=== PATIENT | female | born 1965 | race Caucasian/White ===

== ENCOUNTER 2019-11-28 08:29 | Inpatient (IN) ==
--- NOTE | 2019-11-09 10:35 | PAT Medication Instructions ---
Medication Instructions Date of Service November 09, 2019 Home Medications canagliflozin [Invokana] 300 mg PO QAM citalopram [Celexa] 40 mg PO QAM gabapentin 300 mg PO TID insulin glargine [Basaglar KwikPen U-100 Insulin] 40 unit SUBCUT BID levothyroxine [Synthroid] 200 mcg PO QAM losartan [Cozaar] 25 mg PO QAM metformin 1,000 mg PO BID naproxen 500 mg PO BID omeprazole 40 mg PO QAM ASK your surgeon for instructions naproxen 500 mg PO BID DO NOT take the morning of surgery canagliflozin [Invokana] 300 mg PO QAM losartan [Cozaar] 25 mg PO QAM metformin 1,000 mg PO BID Take morning of surgery With a small sip of water, OTHERWISE NOTHING TO EAT OR DRINK AFTER MIDNIGHT: citalopram [Celexa] 40 mg PO QAM gabapentin 300 mg PO TID levothyroxine [Synthroid] 200 mcg PO QAM omeprazole 40 mg PO QAM Take evening before surgery gabapentin 300 mg PO TID insulin glargine [Basaglar KwikPen U-100 Insulin] 40 unit SUBCUT BID metformin 1,000 mg PO BID Insulin Dependent Diabetic Patients * Test your blood sugar the morning of surgery * If Blood Sugar is GREATER THAN 150, take HALF of your regular dose of: insulin glargine [Basaglar KwikPen U-100 Insulin] take 20 units * If Blood Sugar is LESS THAN 150, DO NOT TAKE ANY: insulin glargine [Basaglar KwikPen U-100 Insulin] Other Notes If you have any questions please call us at [phone] or [phone] or [phone] or [phone]
--- NOTE | 2019-11-10 11:47 | Anesthesiology Consultation ---
Date of Service November 10, 2019 Assessment & Plan (1) Encounter for pre-operative examination: Chart Review Chart Review: Patient seen in Pre Admission Testing - Awaiting PCP office visit note (scheduled 11/20; Dr. Maxine Estrada). - Check BSG AM DOS - Hx PONV: per patient, hx significant PONV with multiple previous procedures even when scope patch had been used. Concerns answered and patient advised to discuss plan further with anesthesiologist AM DOS. - Possible difficult intubation: due to anatomy Teaching & Discussion Pre-Anesthesia Teaching/Discussion Notes: Instructed NPO after midnight before surgery,except medications with 15 cc of water. Medication instructions provided according to the PAT guidelines. History Surgery Operation Date: 11/28/19 10:25 Proposed Procedures p L4-S1 Decompression and Fusion, Spinal Cord Monitoring - Alverto Carnes DO Height/Weight Height: 4 ft 11 in Weight: 110.9 kg Allergies Allergy/AdvReac Type Severity Reaction Status Date / Time Penicillins Allergy Unknown Rash Verified 11/03/19 13:47 sulfamethoxazole Allergy Unknown Rash Verified 11/03/19 13:47 [From Bactrim] trimethoprim [From Bactrim] Allergy Unknown Rash Verified 11/03/19 13:47 diazepam [From Valium] AdvReac Unknown hyperactivi Verified 11/10/19 12:03 ty Medications Home Medications Medication Instructions Recorded Confirmed Last Taken canagliflozin [Invokana] 300 mg PO QAM 11/03/19 11/03/19 Unknown citalopram [Celexa] 40 mg PO QAM 11/03/19 11/03/19 Unknown gabapentin 300 mg PO TID 11/03/19 11/03/19 Unknown insulin glargine [Basaglar KwikPen 40 unit SUBCUT BID 11/03/19 11/03/19 Unknown U-100 Insulin] levothyroxine [Synthroid] 200 mcg PO QAM 11/03/19 11/03/19 Unknown losartan [Cozaar] 25 mg PO QAM 11/03/19 11/03/19 Unknown metformin 1,000 mg PO BID 11/03/19 11/03/19 Unknown naproxen 500 mg PO BID 11/03/19 11/03/19 Unknown omeprazole 40 mg PO QAM 11/03/19 11/03/19 Unknown Past Medical History Medical History Acid reflux controlled Anxiety CAD (coronary artery disease) single vessel obstructive CAD of a small diagonal branch per 2018 cardiac cath- medical management recommended Depression Diabetes IDDM Hiatal hernia History of back problems HTN (hypertension) Hypothyroid Morbid obesity Sleep apnea + snoring/apneic events/no definitive YOKO diagnosis but had previously been recommended to have sleep study Spinal stenosis Exercise / Class Metabolic Activity III < 4 Walking/Shop/Light housework Past Family History Family History Father Family history of diabetes mellitus Family history of leukemia Mother Family history of diabetes mellitus Brother Family history of diabetes mellitus Past Surgical History Surgical History History of arthroscopy of left knee History of cardiac cath 2018: no stents History of carpal tunnel surgery of left wrist History of section History of colonoscopy History of endoscopy History of hysterectomy Past Anesthesia History No Family Hx of Anesthesia Complications and Other ("slow to wake"/no known hx reintubation) History of PONV History of PONV (+ PONV even with scope patch) and Hx of Motion Sickness Social History Smoking Status: Never smoker Do You Dip or Chew Tobacco: No Hx Alcohol Use: No Hx Substance Use: No substance use type: does not use Review of Systems URI symptoms resolved- mild residual cough. Patient denies chest pain, shortness of breath, wheezing, palpitations. Physical Exam Vital Signs VITALS BP 145/82 P 64 TEMP 98.3 SP02 99%RA RESP 18 PHYSICAL Full neck and c-spine range of motion. Full TMJ range of motion. TMD 3 finger breaths Mallampati Score 1/2- by visualization of uvula but unable to see oropharynx due to large tonsils Dentition: missing molars, + crown (unknown location) Lungs: clear throughout to auscultation Cardiac: regular rate and rhythm, distant heart sounds Spine: normal Carotid arteries: negative bruit Extremities: no edema Testing Laboratory Results 11/10/19 12:03 11/10/19 12:03 PT 10.4 Seconds (9.0-12.0) 11/10/19 12:03 INR 1.0 (0.9-1.1) 11/10/19 12:03 APTT 26.3 Seconds (21.0-31.0) 11/10/19 12:03 Hemoglobin A1c 7.2 % (4.5-5.6) H 11/10/19 12:03 Urine Color Yellow 11/10/19 12:03 Urine Appearance Clear (Clear) 11/10/19 12:03 Urine pH 5.0 (4.5-7.5) 11/10/19 12:03 Ur Specific [place] 1.030 (1.000-1.030) 11/10/19 12:03 Urine Protein Negative (Negative) 11/10/19 12:03 Urine Glucose (UA) 3+ (Negative) H 11/10/19 12:03 Urine Ketones Trace (Negative) H 11/10/19 12:03 Urine Nitrite Negative (Negative) 11/10/19 12:03 Ur Leukocyte Esterase Negative (Negative) 11/10/19 12:03 Blood Type A Positive 11/10/19 12: Antibody Screen NEGATIVE 11/10/19 12:03 Electrocardiogram Date: 09/27/19 Findings: + NSR @ (71) Chest X-Ray Date: 11/10/19 Cardiomediastinal and hilar silhouettes are within normal limits. Calcified plaque of the thoracic aorta arch. No pneumothorax, pleural effusion, airspace consolidation or overt pulmonary edema. Minimal linear left lung base atelec tasis/scarring. Degenerative changes of the shoulders and spine. IMPRESSION: No acute process. Stress Test Date: 12/04/17 Type: exercise Stress EKG negative for myocardial ischemia at 92% MPHR. Low level of exercise achieved. CP/PVC's reproduced with exercise. 4.6 METS. Small in size, mild intensity, partially reversible MPI defect involving the distal and mid inferolateral myocardium. Suggests mild inferolateral myocardial infarct and keila-infarct ischemia. Subsequent cardiac cath done 12/18/17* Cardiac Catheterization Date: 12/18/17 Single vessel obstructive CAD of the small diagonal branch. LVEF 60%. Medical management recommended.
[2019-11-10 12:31] LABS: Basophils # (auto) 0.03 K/uL (0-0.2); Basophils % (auto) 0.4 %; Eosinophils # (auto) 0.11 K/uL (0-0.5); Eosinophils % (auto) 1.5 %; Hematocrit (blood only) 44.5 % (37-47); Hemoglobin 14.5 g/dL (12.0-16.0); Immature Granulocytes # (auto) 0.01 K/uL (0.00-0.02); Immature Granulocytes % (auto) 0.1 %; Lymphocytes # (auto) 2.63 K/uL (1.2-3.4); Lymphocytes % (auto) 35.1 %; Mean Corpuscular Hemoglobin 27.5 pg (25-34); Mean Corpuscular Hgb Conc 32.6 g/dL (32-36); Mean Corpuscular Volume 84.4 fL (80-100); Mean Platelet Volume 10.2 fL (7.4-10.4); Monocytes # (auto) 0.66 K/uL (0.11-0.59); Monocytes % (auto) 8.8 %; Neutrophils # (auto) 4.06 K/uL (1.4-6.5); Neutrophils % (auto) 54.1 %; Platelet Count 318 K/uL (130-400); RDW Coefficient of Variation 14.2 % (11.5-14.5); RDW Standard Deviation 43.4 fL (36.4-46.3); Red Blood Count 5.27 M/uL (4.2-5.4)
[2019-11-10 12:42] LABS: Partial Thromboplastin Ratio 0.9; Partial Thromboplastin Time 26.3 Seconds (21.0-31.0); Prothrombin Time 10.4 Seconds (9.0-12.0)
[2019-11-10 12:46] LABS: BUN Creatinine Ratio 13.3 (10-20); Calcium 9.4 mg/dl (8.5-10.1); Est GFR (African American) 93.3; Est GFR (Non-African American) 80.5; Potassium 4.1 mmol/L (3.5-5.1)
[2019-11-10 12:48] LABS: Appearance Urine Clear (Clear); Bilirubin Urine Negative (Negative); Blood Urine Negative (Negative); Color Urine Yellow; Glucose Urine UA 3+ (Negative); Ketones Urine Trace (Negative); Leukocyte Esterase Urine Negative (Negative); Nitrite Urine Negative (Negative); Protein Urine Negative (Negative); Urobilinogen Urine Negative (Negative)
--- NOTE | 2019-11-10 12:49 | XRay Report ---
XR chest Pre-admission PA/Lat HISTORY: 54 years-old Female pat preoperative exam. No acute chest complaints COMPARISON: None TECHNIQUE: PA and lateral views of the chest FINDINGS: Cardiomediastinal and hilar silhouettes are within normal limits. Calcified plaque of the thoracic ao rta arch. No pneumothorax, pleural effusion, airspace consolidation or overt pulmonary edema. Minimal linear left lung base atelectasis/scarring. Degenerative changes of the shoulders and spine. IMPRESSION: No acute process. ACT 112: Negative or not required by law. The above report was generated using voice recognition software. It may contain grammatical, syntax o r spelling errors. Electronically signed by: Andrews Funez M.D. 11/10/2019 12:47 PM
[2019-11-10 12:50] LABS: Estimated Average Glucose 160 mg/dl; Hemoglobin A1C 7.2 % (4.5-5.6)
[~2019-11-28 08:29] MED LIST: CEFAZOLIN 2000MG 2,000 MG/15 ML SYR IV SCH; CLINDAMYCIN 600 MG/54 ML BAG IV SCH; GABAPENTIN 900 MG DOSE PO SCH; HYDROmorphone INJ 2 MG/ML SYR/VIAL ONE; LR 15ML/HR IV SCH; MIDAZOLAM HCL 1 MG/ML 2ML VIAL ONE; fentaNYL citrate 100 MCG/2 ML VIAL ONE
[2019-11-28] MEDS ORDERED: SCOPOLAMINE 1.5 MG TDSY TD ONE (09:23)
[2019-11-28] MEDS ORDERED: ONDANSETRON INJ 2 MG/ML 2 ML VIAL IV PRN ×2 (09:24→14:07)
[2019-11-28] MEDS ORDERED: ATROPINE SULFATE 0.1 MG/ML 10ML SYR IV PRN (09:24)
[2019-11-28] MEDS ORDERED: METOCLOPRAMIDE HCL INJ 5 MG/ML 2 ML VIAL IV PRN ×2 (09:24→14:07)
[2019-11-28] MEDS ORDERED: HYDROmorphone INJ 0.5 MG/0.5 ML SYR IV PRN ×2 (09:24→14:07)
[2019-11-28] MEDS ORDERED: ePHEDrine sulfate 50 MG/ML AMP IV PRN (09:24)
[2019-11-28] MEDS ORDERED: fentaNYL citrate 100 MCG/2 ML VIAL IV PRN (09:24)
--- NOTE | 2019-11-28 09:28 | History & Physical Bridge Note ---
Date of Service November 28, 2019 History & Physical Bridge Note I have examined the patient, reviewed the History & Physical and in the interval since the performance of the History & Physical I have noted the following changes of clinical significance: no changes noted
--- NOTE | 2019-11-28 09:29 | History & Physical Report ---
Date of Service November 28, 2019 Assessment & Plan (1) Neurogenic claudication due to lumbar spinal stenosis: L4-S1 decompression fusion Present on Admission?: Yes History of Present Illness Chief Complaint: Back and bilateral leg pain Primary Care Provider: Maxine Estrada MD This is a 54-year-old female that presents with marked decline in status with worsening back bilateral leg pain and inability to ambulate. Subsequently she is here for urgent surgery. Allergies Allergy/AdvReac Type Severity Reaction Status Date / Time Penicillins Allergy Unknown Rash Verified 11/28/19 09:04 sulfamethoxazole Allergy Unknown Rash Verified 11/28/19 09:04 [From Bactrim] trimethoprim [From Bactrim] Allergy Unknown Rash Verified 11/28/19 09:04 diazepam [From Valium] AdvReac Unknown hyperactivi Verified 11/28/19 09:04 ty Home Medications Home Medications Medication Instructions Recorded Confirmed Type canagliflozin [Invokana] 300 mg PO QAM 11/03/19 11/28/19 History citalopram [Celexa] 40 mg PO QAM 11/03/19 11/28/19 History gabapentin 300 mg PO TID 11/03/19 11/28/19 History insulin glargine [Basaglar KwikPen 40 unit SUBCUT BID 11/03/19 11/28/19 History U-100 Insulin] levothyroxine [Synthroid] 200 mcg PO QAM 11/03/19 11/28/19 History losartan [Cozaar] 25 mg PO QAM 11/03/19 11/28/19 History metformin 1,000 mg PO BID 11/03/19 11/28/19 History naproxen 500 mg PO BID 11/03/19 11/28/19 History omeprazole 40 mg PO QAM 11/03/19 11/28/19 History Past Med/Surg History Medical History Acid reflux controlled Anxiety CAD (coronary artery disease) single vessel obstructive CAD of a small diagonal branch per 2018 cardiac cath- medical management recommended Depression Diabetes IDDM Hiatal hernia History of back problems HTN (hypertension) Hypothyroid Morbid obesity Sleep apnea + snoring/apneic events/no definitive YOKO diagnosis but had previously been recommended to have sleep study Spinal stenosis Surgical History History of arthroscopy of left knee History of cardiac cath 2018: no stents History of carpal tunnel surgery of left wrist History of section History of colonoscopy History of endoscopy History of hysterectomy Family History Father Family history of diabetes mellitus Family history of leukemia Mother Family history of diabetes mellitus Brother Family history of diabetes mellitus Social History Preferred Language: French Communication Ability: Effective Labor Expediter Required: No Beliefs That Will Affect Care: None Current Living Situation: Family and Significant Other Current Living Situation Comment: MOM BOYFRIEND AND BOYFRIEND'S DAUGHTER Other Information That Helps Us Care for You: No Feels Safe at Home: Yes Smoking Status: Never smoker Do You Dip or Chew Tobacco: No ; Second Hand Exposure: Yes ; Hx Alcohol Use: No Hx Substance Use: No Physical Exam Physical Exam: Patient is alert and oriented neurologically intact Results & Data Vital Signs (Past 12 Hours) Vital Signs Temp Pulse Resp BP Pulse Ox 11/28/19 09:01 36.9 C 93 H 20 161/94 H 94
[2019-11-28] MEDS ORDERED: BACITRACIN INJ 50,000 UNIT VIAL ONE (09:40)
[2019-11-28] MEDS ORDERED: BUPIVACAINE/EPINEPHRINE 0.5% MPF 1:200,000 10 ML VIAL ONE (09:40)
[2019-11-28] MEDS ORDERED: NEOSTIGMINE METHYLSULFATE 5 MG/5 ML SYR ONE (10:35)
[2019-11-28] MEDS ORDERED: PHENYLEPHRINE 100MCG/ML 5ML SYR ONE (10:35)
[2019-11-28] MEDS ORDERED: METOCLOPRAMIDE HCL INJ 5 MG/ML 2 ML VIAL ONE (10:35)
[2019-11-28] MEDS ORDERED: DEXAMETHASONE SOD INJ 4 MG/ML VIAL ONE (10:35)
[2019-11-28] MEDS ORDERED: LIDOCAINE HCL 2% 2 ML VIAL/AMP(20MG/ML) INFIL ONE (10:35)
[2019-11-28] MEDS ORDERED: PROPOFOL IV EMULSION 10 MG/ML 20 ML VIAL IV ONE (10:35)
[2019-11-28] MEDS ORDERED: LARYING-O-JET KIT (LTA) ONE (10:35)
[2019-11-28] MEDS ORDERED: ROCURONIUM BROMIDE 10 MG/ML 5 ML VIAL ONE ×2 (10:35→12:13)
[2019-11-28] MEDS ORDERED: ONDANSETRON INJ 2 MG/ML 2 ML VIAL ONE (10:35)
[2019-11-28] MEDS ORDERED: GLYCOPYRROLATE 0.2 MG/ML VIAL ONE (10:35)
[2019-11-28] MEDS ORDERED: FLOSEAL HEMOSTATIC MATRIX 10ML TOP ONE (10:46)
[2019-11-28] MEDS ORDERED: PHENYLEPHRINE HCL 10 MG/ML VIAL ONE (11:13)
[2019-11-28] MEDS ORDERED: ePHEDrine sulfate 50 MG/ML SYR ONE (11:13)
--- NOTE | 2019-11-28 12:21 | Operative Report ---
Post Operative Report Pre & Post Diagnosis Operation Date: 11/28/19 10:25 Pre-Op Diagnosis: Lumbar spinal stenosis with neurogenic claudication. Lumbar spondylolisthesis Morbid obesity Post-Op Diagnosis: Same I identified the patient and participated in the time-out.: Yes Procedure Operation Date: 11/28/19 10:25 Actual Procedures #1 lumbar decompression with bilateral medial facetectomies and foraminotomies L3-4, L4-5 and L5-S1. #2 posterior spinal fusion L4-5 L5-S1. #3 placement posterior instrumentation L4-5 L5-S1. #4 interbody fusion L4 5 and L5-S1. #5 placement of peek cage 11 x 22 mm at L4-5 and 12 x 22 mm at L5-S1. #6 placement locally harvested morselized autograft in the posterior lateral gutters. #7 placement infuse collagen sponge, master graft in the posterior lateral gutters and ostial amp and interbody space. Surgeon Alverto Carnes, Cuff Cutter Sonia Ramirez Estimated Blood Loss 250 Findings See Below The patient is 4 foot 11 inches tall weighing over 109 kg with a BMI in excess of 48. The patient's body habitus did create significant technical difficulty requiring her deepest retractors and longus instruments in order to perform her procedure. She will also require additional follow-up in order to ensure she is healing adequately in light of her soft tissue density. She is at increased risk for postoperative complication. Specimens None Indications This is a 54-year-old female that we have been following for sometime that is demonstrating marked decline in status with inability to ambulate and increased weakness affecting left lower extremity right greater than the right. Description of Procedure Patient was met with Venkat Frost question addressed at that point patient was taken back to the operative suite underwent intubation placed in a prone position the Gianluca table on top of the Yong frame. All bony prominences well-padded eyes inspected to ensure no external pressure placed upon the. This point the lumbar spine was prepped and draped in normal sterile fashion. Sharp dissection with the assistance of Bovie cautery was performed down to and exposing the lamina and transverse processes of L4-L5 and sacral ala bilaterally. From a caudal cephalad fashion complete laminectomy of L5 L4 and partial laminectomy L3 was performed including bilateral medial facetectomies and foraminotomies addressing severe spinal stenosis. Of note with specific severe compression of the L5 nerve root on the left both secondary to bony compression as well as disc herniation affecting L5 as well as the transversing S1 nerve root. Pedicle screws were then placed in L4-L5 and S1 levels bilateral ly with assistance of fluoroscopy the proper sized karyna placed. By way of transfer approach on the left complete discectomy of L5-S1 was performed endplates curetted to subcortical being bone and a 12 x 22 mm peek cage filled with osteo-bone graft tapped in position. Then proceeded L4-[address] of a transforaminal approach and left complete discectomy was performed endplates curetted to subcortical and bone and a 11 x 22 mm peek cage filled with osteo-bone graft tapped in position. The rods were then locked in final position bilaterally. The transverse processes of L4-L5 and sacral ala burred to subcortical bleeding bone. Infuse collagen sponge master graft local autograft placed in the posterior lateral gutters. 15 round CECE drain inserted. The incision was then closed with 1 Vicryl the fascia 2-0 Vicryl subcutaneously and 4 Monocryl for final skin closure. Steri-Strip sterile dressings placed. Patient will continue PACU stable disc. Please note spinal cord monitoring was utilized that the procedure no changes noted. I attest to the content of the Intraoperative Record and any orders documented therein. Any exceptions are noted below.
--- NOTE | 2019-11-28 12:39 | Fluoroscopy Report ---
FL lumbar spine 2-3V CLINICAL HISTORY: L4-S1 DECOMP/FUSION COMPARISON STUDY: None FLUOROSCOPY TIME: 19 seconds. NUMBER OF FLUOROSCOPIC IMAGES: 2 FINDINGS: 2 intraoperative fluoroscopic spot images reveal postsurgical changes of consecutive level discectomies and interbody fusions, likely the L4-5 and L5-S1 levels. There is evidence for posterior pedicle screw spinal rodding fixation. IMPRESSION: Postsurgical changes of a lumbar decompression spinal fusion. ACT 112: Negative or not required by law. Electronically signed by: Harvey Mascorro M.D. 11/28/2019 12:37 PM
--- NOTE | 2019-11-28 13:39 | Anesthesiology Progress Note ---
Date of Service November 28, 2019 Anesthesia Post Procedure Vital Signs Vital Signs: Temp Pulse Pulse Resp BP Pulse Ox 11/28/19 13:35 98.4 F 79 16 147/73 H 94 11/28/19 13:25 98.4 F 82 12 154/71 H 94 11/28/19 13:15 82 14 154/75 H 93 11/28/19 13:05 88 15 166/73 H 95 11/28/19 12:55 91 H 14 194/88 H 90 11/28/19 12:49 97.3 F L 89 16 155/81 H 94 11/28/19 09:01 98.4 F 93 H 20 161/94 H 94 Transfer of Care Handoff Completed per policy Notes Mental Status: alert / awake / arousable and participated in evaluation Patient Amnestic to Procedure: Yes Nausea / Vomiting: adequately controlled Pain: adequately controlled Airway Patency, RR, SpO2: stable & adequate BP & HR: stable & adequate Hydration State: stable & adequate Anesthetic Complications: no major complications apparent and Pt Satisfied with anesthetic care
[2019-11-28] MEDS ORDERED: ONDANSETRON 4 MG OD TAB PO PRN (14:07)
[2019-11-28] MEDS ORDERED: ALUMINUM/MAGNESIUM SUSP 30 ML UDC PO PRN (14:07)
[2019-11-28] MEDS ORDERED: FAMOTIDINE 20 MG TAB PO PRN (14:07)
[2019-11-28] MEDS ORDERED: HYDROmorphone INJ 1 MG/ML SYRINGE IV PRN (14:07)
[2019-11-28] MEDS ORDERED: ACETAMINOPHEN 1,000 MG/100 ML VIAL IV PRN (14:07)
[2019-11-28] MEDS ORDERED: DO NOT ADMINISTER FLU VACCINE PRN (14:07)
[2019-11-28] MEDS ORDERED: TRAMADOL HCL 50 MG TABLET PO PRN (14:07)
[2019-11-28] MEDS ORDERED: MAGNESIUM HYDROXIDE SUSP 30 ML UDC PO PRN (14:07)
[2019-11-28] MEDS ORDERED: PROMETHAZINE HCL 12.5 MG in SODIUM CHLORIDE 0.9% 50 ML IV PRN (14:07)
[2019-11-28] MEDS ORDERED: SOD PHOSPHATE/SOD BIPHOSPHATE ENEMA 132 ML BTL PR PRN (14:07)
[2019-11-28] MEDS ORDERED: LORazepam 0.5 MG/1 ML VIAL IV PRN (14:07)
[2019-11-28] MEDS ORDERED: ACETAMINOPHEN 500 MG TAB PO PRN (14:07)
[2019-11-28] MEDS ORDERED: DO NOT ADMINISTER PNEUMOCOCCAL VACCINE PRN (14:07)
[2019-11-28] MEDS ORDERED: LORazepam 0.5 MG TAB PO PRN (14:07)
[2019-11-28] MEDS ORDERED: NALOXONE HCL 0.4 MG/1 ML VIAL/CARP IV PRN (14:07)
[2019-11-28] MEDS ORDERED: bisacodyL 10 MG SUPP PR PRN (14:07)
[2019-11-28] MEDS ORDERED: DEXTROSE 50% 50 ML SYRINGE IV PRN (15:27)
[2019-11-28] MEDS ORDERED: CARBOHYDRATES FOR HYPOGLYCEMIA PO PRN (15:27)
[2019-11-28] MEDS ORDERED: GLUCAGON FOR INJ 1 MG VIAL SQ PRN (15:27)
[2019-11-28] MEDS ORDERED: GLUCOSE 10 TABS/TUBE PO PRN (15:27)
[2019-11-28] MEDS ORDERED: GLUCOSE 40% GEL 15 GM TUBE PO PRN (15:27)
[2019-11-28] MEDS ORDERED: INSULIN GLARGINE SOLOSTAR 100 UNITS/ML 3 ML PEN SC ONE (16:00)
[2019-11-28] MEDS: SODIUM CHLORIDE 0.9% 1000ML 1,000 ML IV SCH ×2 (16:01→23:21)
[2019-11-28] MEDS: GABAPENTIN 300 MG CAP PO SCH ×2 (16:02→20:46)
[2019-11-28] MEDS: CHECK SCOPOLAMINE PATCH PLACEMENT SCH (16:03)
--- NOTE | 2019-11-28 17:32 | Hospitalist Consultation ---
Date of Consultation November 28, 2019 Assessment & Plan (1) Neurogenic claudication due to lumbar spinal stenosis: - POD#0 L4-S1 decompression and fusion by Dr. Carnes - activity and wound care orders as per ortho - pain control with bowel regimen - PT/OT - monitor H/H for acute blood loss anemia and transfuse blood products PRN -EBL 250 cc (2) DM type 2 (diabetes mellitus, type 2): -Hgb A1c 7.2 11/10/2019 -Hold home oral agents and utilize Lantus and NovoLog per protocol while hospitalized -Monitor closely for hyperglycemia secondary to dexamethasone received intraoperatively (3) HTN (hypertension): -BP controlled, continue losartan (4) Hypothyroid: -Continue levothyroxine (5) Acid reflux: -Continue PPI (6) DVT prophylaxis: -Teds/SCDs as per spine orthopedics Thank you for this consultation. We will follow the patient with you during their hospital stay. You can reach a member of the [facility] Team 23/03 via pager @ [phone]. Supervising Physician Co-Signing Physician Notes Attending Addendum: care coordinated with SATHISH perez please refer to her notes for full details, I agree with her notes patient seen and examined, records reviewed by myself as well on exam, patient seen sleeping, but easily awakened, oriented, not in distress She feels comfortable overall States pain is well controlled Denies shortness of breath, chest pain, dizziness, nausea, headache no other symptoms VS noted and reviewed oriented x 3 , not in distress, speaks in sentences with no effort nor accessory muscle use normal rate, regular rhythm, no murmurs clear breath sounds bilaterally non distended, soft, nontender no bipedal edema, erythema, warmth no neuro deficits No labs today ASSESSMENT AND PLAN Status post lumbar spine decompression/fusion Stable overall Monitor hemoglobin DVT prophylaxis per orthopedic service Diabetes type 2 Hold metformin Continue insulin glargine and insulin sliding scale Monitor BSG's Hypertension Mildly elevated, but asymptomatic Continue losartan other diagnoses and plan of care as per SATHISH Lopez MD History of Present Illness Reason for Consultation: Postop medical management Requesting Physician: Dr. Carnes Attending Physician: Dr. Lopez History of Present Illness 54-year-old female who is status post L4-S1 decompression and fusion today by Dr. Carnes. Postoperatively, the patient is doing well. She is somewhat lethargic however does arouse to loud verbal and tactile stimuli. Patient reports her pain is well controlled. Denies lower extremity numbness or tingling. No chest pain or shortness of breath. Denies abdominal pain and nausea. Horne catheter is in place draining clear yellow urine. Allergies Allergy/AdvReac Type Severity Reaction Status Date / Time Penicillins Allergy Unknown Rash Verified 11/28/19 09:04 sulfamethoxazole Allergy Unknown Rash Verified 11/28/19 09:04 [From Bactrim] trimethoprim [From Bactrim] Allergy Unknown Rash Verified 11/28/19 09:04 diazepam [From Valium] AdvReac Unknown hyperactivi Verified 11/28/19 09:04 ty Home Medications Home Medications Medication Instructions Recorded Confirmed Type canagliflozin [Invokana] 300 mg PO QAM 11/03/19 11/28/19 History citalopram [Celexa] 40 mg PO QAM 11/03/19 11/28/19 History gabapentin 300 mg PO TID 11/03/19 11/28/19 History insulin glargine [Basaglar KwikPen 40 unit SUBCUT BID 11/03/19 11/28/19 History U-100 Insulin] levothyroxine [Synthroid] 200 mcg PO QAM 11/03/19 11/28/19 History losartan [Cozaar] 25 mg PO QAM 11/03/19 11/28/19 History metformin 1,000 mg PO BID 11/03/19 11/28/19 History naproxen 500 mg PO BID 11/03/19 11/28/19 History omeprazole 40 mg PO QAM 11/03/19 11/28/19 History Patient History Medical History Acid reflux controlled Anxiety CAD (coronary artery disease) single vessel obstructive CAD of a small diagonal branch per 2018 cardiac cath- medical management recommended Depression Diabetes IDDM Hiatal hernia History of back problems HTN (hypertension) Hypothyroid Morbid obesity Sleep apnea + snoring/apneic events/no definitive YOKO diagnosis but had previously been recommended to have sleep study Spinal stenosis Surgical History History of arthroscopy of left knee History of cardiac cath 2018: no stents History of carpal tunnel surgery of left wrist History of section History of colonoscopy History of endoscopy History of hysterectomy Family History Father Family history of diabetes mellitus Family history of leukemia Mother Family history of diabetes mellitus Brother Family history of diabetes mellitus Social History Preferred Language: Malay Communication Ability: Effective Manager Pet Required: No Beliefs That Will Affect Care: None Current Living Situation: Family and Significant Other Current Living Situation Comment: MOM BOYFRIEND AND BOYFRIEND'S DAUGHTER Other Information That Helps Us Care for You: No Feels Safe at Home: Yes Smoking Status: Never smoker Do You Dip or Chew Tobacco: No ; Second Hand Exposure: Yes ; Hx Alcohol Use: No Hx Substance Use: No Review of Systems Review of Systems: ROS per HPI, all other systems reviewed and negative Physical Exam Constitutional: WD/WN, vitals as above Eyes: PERRL, conjunctivae normal, anicteric sclerae ENMT: external ear and nose normal, oropharynx normal Respiratory: normal respiratory effort, lungs clear to auscultation Cardiovascular: Rate/Rhythm: regular rate and regular rhythm Vessels: normal peripheral pulses Extremities: no edema Gastrointestinal (Abdomen): normal bowel sounds, soft, nontender, no hepatosplenomegaly Musculoskeletal: no cyanosis or clubbing, extremities motor strength 5/5 S/p back surgery, pedal pushes and pulls strong bilaterally, drain in place draining bloody drainage Skin: no rashes, warm and dry Neurologic: PERRL, EOMI, accommodation nl, no face palsy, no dysarthria Psychiatric: Lethargic however arouses to loud verbal and tactile stimuli Genitourinary: Horne in place draining clear yellow urine Results & Data Results & Data ([facility]) Vital Signs (Past 12 Hours) Vital Signs Temp Pulse Pulse Pulse Resp BP Pulse Ox 11/28/19 16:04 36.6 C 95 H 18 156/90 H 95 11/28/19 14:47 94 H 18 131/75 96 11/28/19 14:22 83 20 136/77 92 11/28/19 13:55 37.0 C 96 H 16 165/80 H 96 11/28/19 13:45 36.9 C 84 17 124/88 94 11/28/19 13:35 36.9 C 79 16 147/73 H 94 11/28/19 13:25 36.9 C 82 12 154/71 H 94 11/28/19 13:15 82 14 154/75 H 93 11/28/19 13:05 88 15 166/73 H 95 11/28/19 12:55 91 H 14 194/88 H 90 11/28/19 12:49 36.3 C L 89 16 155/81 H 94 11/28/19 09:01 36.9 C 93 H 20 161/94 H 94
[2019-11-28] MEDS: INSULIN ASPART 100 UNITS/ML 3 ML PEN SC SCH ×2 (18:07→20:48)
[2019-11-28] MEDS: CLINDAMYCIN 600 MG in DEXTROSE 5% 50 ML IV SCH (18:07)
[2019-11-28] MEDS: DOCUSATE SODIUM/SENNA 50/8.6MG TAB PO SCH (20:47)
[2019-11-28] MEDS: INSULIN GLARGINE SOLOSTAR 100 UNITS/ML 3 ML PEN SC SCH (20:48)
[2019-11-29] MEDS: CHECK SCOPOLAMINE PATCH PLACEMENT SCH ×4 (00:20→23:45)
[2019-11-29] MEDS: INSULIN ASPART 100 UNITS/ML 3 ML PEN SC SCH ×6 (00:22→21:11)
[2019-11-29] MEDS: CLINDAMYCIN 600 MG in DEXTROSE 5% 50 ML IV SCH (01:47)
[2019-11-29] MEDS: OXYCODONE HCL IR 5 MG TAB (IMMEDIATE RELEASE) PO PRN ×3 (02:43→21:20)
[2019-11-29 05:53] LABS: Basophils # (auto) 0.01 K/uL (0-0.2); Basophils % (auto) 0.1 %; Hematocrit (blood only) 37.3 % (37-47); Immature Granulocytes # (auto) 0.09 K/uL (0.00-0.02); Immature Granulocytes % (auto) 0.5 %; Lymphocytes # (auto) 1.22 K/uL (1.2-3.4); Lymphocytes % (auto) 7.1 %; Mean Corpuscular Hemoglobin 27.3 pg (25-34); Mean Corpuscular Hgb Conc 32.2 g/dL (32-36); Mean Corpuscular Volume 84.8 fL (80-100); Mean Platelet Volume 10.1 fL (7.4-10.4); Monocytes # (auto) 1.14 K/uL (0.11-0.59); Monocytes % (auto) 6.7 %; Neutrophils # (auto) 14.67 K/uL (1.4-6.5); Neutrophils % (auto) 85.6 %; Platelet Count 207 K/uL (130-400); RDW Coefficient of Variation 14.4 % (11.5-14.5); RDW Standard Deviation 44.7 fL (36.4-46.3); White Blood Count 17.13 K/uL (4.8-10.8)
[2019-11-29] MEDS: SODIUM CHLORIDE 0.9% 1000ML 1,000 ML IV SCH (06:25)
[2019-11-29] MEDS: POLYETHYLENE (MIRALAX) 17 GM PACK PO SCH ×4 (06:27→23:45)
[2019-11-29] MEDS: LEVOTHYROXINE SODIUM 200 MCG TABLET PO SCH (06:27)
[2019-11-29 06:33] LABS: BUN Creatinine Ratio 16.1 (10-20); Calcium 8.6 mg/dl (8.5-10.1); Creatinine Clr Calc Pharmacy 102.2 ml/min; Est GFR (African American) 114.6; Est GFR (Non-African American) 98.9; Potassium 4.2 mmol/L (3.5-5.1)
[2019-11-29] MEDS: LOSARTAN POTASSIUM 25 MG TAB PO SCH (08:25)
[2019-11-29] MEDS: CITALOPRAM 40 MG TAB PO SCH (08:25)
[2019-11-29] MEDS: PANTOprazole 40 MG TAB PO SCH (08:26)
[2019-11-29] MEDS: GABAPENTIN 300 MG CAP PO SCH ×3 (08:26→21:20)
[2019-11-29] MEDS: INSULIN GLARGINE SOLOSTAR 100 UNITS/ML 3 ML PEN SC SCH ×2 (08:28→21:11)
--- NOTE | 2019-11-29 10:14 | Orthopedic Progress Note ---
Date of Service November 29, 2019 Assessment & Plan (1) Neurogenic claudication due to lumbar spinal stenosis: This time we will continue physical therapy monitor her CECE output anticipate discharge home the next few days. Present on Admission?: Yes Admission and Anticipated Discharge Date Admission Date: November 28, 2019 Subjective Back pain controlled leg symptoms markedly improved. Physical Exam Physical Exam: Patient is in a chair at the bedside is good strength testing appears comfortable. Results & Data ([facility]) Vital Signs (Past 12 Hours) Vital Signs Temp Pulse Resp BP Pulse Ox 11/29/19 08:39 37.1 C 90 16 145/77 H 96 11/29/19 03:51 37.2 C 88 20 134/73 96 11/28/19 23:00 37.1 C 97 H 20 132/71 94
--- NOTE | 2019-11-29 20:37 | Hospitalist Progress Note ---
Date of Service November 29, 2019 Assessment & Plan (1) Neurogenic claudication due to lumbar spinal stenosis: - POD#1 L4-S1 decompression and fusion by Dr. Carnes - activity and wound care orders as per ortho - pain control with bowel regimen - PT/OT - monitor H/H for acute blood loss anemia and transfuse blood products PRN -EBL 250 cc (2) Leukocytosis: Afebrile and clinically well. Likely 2/2 intraoperative dexamethasone. CBC in am. (3) DM type 2 (diabetes mellitus, type 2): -Hgb A1c 7.2 11/10/2019 -Hold home oral agents and utilize Lantus and NovoLog per protocol while hospitalized, at goal currently (4) HTN (hypertension): -BP controlled, continue losartan per home regimen. (5) Hypothyroid: -Continue levothyroxine per home regimen. (6) Acid reflux: -Continue PPI per home regimen. (7) DVT prophylaxis: -Teds/SCDs as per spine orthopedics Full Code Dispo-per Ortho Thank you for this consultation. We will follow the patient with you during their hospital stay. You can reach a [facility] of [facility] via pager @ [phone]. Enedelia Suh, [facility] Ad[facility] and Anticipated Discharge Date Admission Date: November 28, 2019 Subjective Back surgery yesterday Pain well managed Doing well overall afebrile and tolerating PO some persistent pain in left foot but improved. Review of Systems Review of Systems: All systems reviewed & are unremarkable except as noted in Subjective Physical Exam Physical Exam: CONSTITUTIONAL: WNWD, vitals as above, generally well- appearing EYES: normal conjunctivae, no scleral icterus ENT: external ear and nose normal, MMM RESPIRATORY: clear to auscultation bilaterally, no crackles, rales or wheezes, normal respiratory effort CARDIOVASCULAR: regular rate and rhythm, S1 and 2 heard without murmurs, gallops or rubs, no JVD, no peripheral edema GASTROINTESTINAL: soft, nontender, nondistended MUSCULOSKELETAL: moves all extremities with ease. Limitations that are expected in post op setting. SKIN: warm and dry, surgical incision covered with dressing that is c/d/i/ +CECE drain NEUROLOGIC: CN 2-12 grossly intact, Legs are NVI, no gross focal deficits. PSYCHIATRIC: alert cooperative and oriented to person, place and time. Results & Data Results & Data ([facility]) Vital Signs (Past 12 Hours) Vital Signs Temp Pulse Resp BP Pulse Ox 11/29/19 17:03 102/65 11/29/19 15:22 36.8 C 87 17 109/64 96 11/29/19 13:12 94 11/29/19 11:35 37.1 C 100 H 18 120/77 92 11/29/19 08:39 37.1 C 90 16 145/77 H 96 Laboratory Results Short CBC 11/29/19 Range/Units 05:23 WBC 17.13 H (4.8-10.8) K/uL Hgb 12.0 (12.0-16.0) g/dL Hct 37.3 (37-47) % Plt Count 207 (130-400) K/uL BMP 11/29/19 05:23 Sodium 137 Potassium 4.2 Chloride 108 H Carbon Dioxide 28 BUN 11 Creatinine 0.70 Glucose 133 H Calcium 8.6 Medications Administered Current Inpatient Medications Acetaminophen (Tylenol) 1,000 mg PO Q8H PRN PRN Reason: MILD Pain Scale 1,2,3 & Pre PT Stop: 12/28/19 14:06 Al Hydrox/Mg Hydrox/Simethicone (Maalox) 30 ml PO Q6H PRN PRN Reason: Dyspepsia Stop: 12/28/19 14:06 Bisacodyl (Dulcolax) 10 mg [place] DAILY PRN PRN Reason: Constipation Stop: 12/28/19 14:06 Citalopram Hydrobromide (Celexa) 40 mg PO QAM [facility] Stop: 12/29/19 08:59 Last Admin: 11/29/19 08:25 Dose: 40 mg Documented by: Dextrose (Dextrose 50%) 25 - 50 ml IV UD PRN; Protocol PRN Reason: Hypoglycemia Protocol Stop: 12/28/19 15:26 Diphenhydramine HCl (Benadryl Capsule) 25 mg PO Q6H PRN PRN Reason: Allergic Rhinitis/Insomnia Stop: 12/28/19 14:06 Famotidine (Pepcid) 20 mg PO Q12H PRN PRN Reason: Dyspepsia Stop: 12/28/19 14:06 Gabapentin (Neurontin) 300 mg PO TID [facility] Stop: 12/28/19 14:29 Last Admin: 11/29/19 12:13 Dose: 300 mg Documented by: Glucagon (Glucagen) 1 mg SQ UD PRN; Protocol PRN Reason: Hypoglycemia Protocol Stop: 12/28/19 15:26 Glucose (Dex4 Glucose) 4 - 8 tabs PO UD PRN; Protocol PRN Reason: Hypoglycemia Protocol Stop: 12/28/19 15:26 Glucose (Glucose 40%) 15 - 30 gm PO UD PRN; Protocol PRN Reason: Hypoglycemia Protocol Stop: 12/28/19 15:26 Hydromorphone HCl (Dilaudid) 0.5 mg IV Q3H PRN PRN Reason: MOD pain (scale 4-6) & Pre PT Stop: 12/12/19 14:06 Hydromorphone HCl (Dilaudid) 1 mg IV Q3H PRN PRN Reason: severe pain (scale 7-10) Stop: 12/12/19 14:06 Hydroxyzine HCl (Vistaril) 25 mg PO Q8H PRN PRN Reason: Anxiety Stop: 12/28/19 14:06 Promethazine HCl 12.5 mg/ (Sodium Chloride) 50.5 mls @ 204 mls/hr IV Q6H PRN PRN Reason: Nausea &/or Vomiting Stop: 12/28/19 14:06 Lorazepam (Ativan) 0.5 mg in 1 mls @ 0.5 mls/min IV Q8H PRN PRN Reason: Sedation/Anxiety Stop: 12/28/19 14:06 Influenza Virus Vaccine Quadrival (Flu Vaccine, Do Not Administer) 1 ea N/A PRN PRN PRN Reason: Notification Stop: 12/28/19 14:06 Insulin Aspart (Novolog Flexpen) 0 units SC ACHS [facility] Stop: 12/28/19 16:29 Last Admin: 11/29/19 17:29 Dose: 10 units Documented by: Insulin Glargine (Lantus Solostar Pen) 0 - 30 units SC BID [facility]; Protocol Stop: 12/28/19 20:59 Last Admin: 11/29/19 08:28 Dose: 10 units Documented by: Levothyroxine Sodium (Synthroid) 200 mcg PO DAILYBB [facility] Stop: 12/29/19 06:29 Last Admin: 11/29/19 06:27 Dose: 200 mcg Documented by: Lorazepam (Ativan) 0.5 mg PO Q8H PRN PRN Reason: Sedation/Anxiety Stop: 12/28/19 14:06 Losartan Potassium (Cozaar) 25 mg PO QAM [facility] Stop: 12/29/19 08:59 Last Admin: 11/29/19 08:25 Dose: 25 mg Documented by: Magnesium Hydroxide (Milk Of Magnesia) 30 ml PO DAILY PRN PRN Reason: Constipation Stop: 12/28/19 14:06 Metoclopramide HCl (Reglan) 10 mg IV Q6H PRN PRN Reason: Nausea &/or Vomiting Stop: 12/28/19 14:06 Miscellaneous (Check Scopolamine Patch Placement) 1 ea N/A QS [facility] Stop: 12/01/19 05:59 Last Admin: 11/29/19 15:30 Dose: 1 ea Documented by: Miscellaneous (Remove Transderm-Scop Patch) 1 ea N/A ONE ONE Stop: 12/01/19 06:01 Miscellaneous (Carbohydrates For Hypoglycemia) 15 - 30 gm PO UD PRN PRN Reason: Hypoglycemia Protocol Stop: 12/28/19 15:26 Naloxone HCl (Narcan) 0.1 mg IV Q5M PRN; Protocol PRN Reason: Oversedation/Resp Depression Stop: 12/28/19 14:06 Ondansetron HCl (Zofran) 4 mg IV Q6H PRN PRN Reason: Nausea &/or Vomiting Stop: 12/28/19 14:06 Ondansetron HCl (Zofran Odt) 4 mg PO Q6H PRN PRN Reason: Nausea Stop: 12/28/19 14:06 Oxycodone HCl (Roxicodone Immediate Rel) 5 - 10 mg PO Q4H PRN PRN Reason: Moderate-Severe Pain & Pre PT Stop: 12/12/19 14:06 Last Admin: 11/29/19 11:31 Dose: 10 mg Documented by: Pantoprazole Sodium (Protonix) 40 mg PO QAM [facility] Stop: 12/29/19 08:59 Last Admin: 11/29/19 08:26 Dose: 40 mg Documented by: Pneumococcal Polyvalent Vaccine (Pneumococcal Vacc, Do Not Administer) 1 ea N/A PRN PRN PRN Reason: Notification Stop: 12/28/19 14:06 Polyethylene Glycol (Miralax Powder Packet) 17 gm PO Q6 [facility] Stop: 12/29/19 05:59 Last Admin: 11/29/19 17:28 Dose: Not Given Documented by: Senna/Docusate Sodium (Senokot S) 2 tab PO HS [facility] Stop: 12/28/19 20:59 Last Admin: 11/28/19 20:47 Dose: 2 tab Documented by: Sodium Biphosphate/Sodium Phosphate (Fleet Enema) 132 ml [place] ONE PRN PRN Reason: Constipation Stop: 12/28/19 14:06 Tramadol HCl (Ultram) 50 - 100 mg PO Q4H PRN PRN Reason: Moderate-Severe Pain & Pre PT Stop: 12/28/19 14:06
[2019-11-29] MEDS: DOCUSATE SODIUM/SENNA 50/8.6MG TAB PO SCH (21:19)
[2019-11-30 06:11] LABS: Hematocrit (blood only) 36.3 % (37-47); Hemoglobin 11.6 g/dL (12.0-16.0); Mean Corpuscular Hemoglobin 27.4 pg (25-34); Mean Corpuscular Volume 85.6 fL (80-100); Mean Platelet Volume 9.7 fL (7.4-10.4); Platelet Count 211 K/uL (130-400); RDW Coefficient of Variation 14.6 % (11.5-14.5); RDW Standard Deviation 45.5 fL (36.4-46.3); Red Blood Count 4.24 M/uL (4.2-5.4); White Blood Count 14.51 K/uL (4.8-10.8)
[2019-11-30] MEDS: POLYETHYLENE (MIRALAX) 17 GM PACK PO SCH ×3 (06:34→17:20)
[2019-11-30] MEDS: LEVOTHYROXINE SODIUM 200 MCG TABLET PO SCH (06:34)
[2019-11-30] MEDS: PANTOprazole 40 MG TAB PO SCH (08:10)
[2019-11-30] MEDS: GABAPENTIN 300 MG CAP PO SCH ×3 (08:10→20:50)
[2019-11-30] MEDS: CITALOPRAM 40 MG TAB PO SCH (08:11)
[2019-11-30] MEDS: LOSARTAN POTASSIUM 25 MG TAB PO SCH (08:11)
[2019-11-30] MEDS: INSULIN ASPART 100 UNITS/ML 3 ML PEN SC SCH ×4 (08:11→21:02)
[2019-11-30] MEDS: CHECK SCOPOLAMINE PATCH PLACEMENT SCH ×2 (08:11→15:48)
[2019-11-30] MEDS: INSULIN GLARGINE SOLOSTAR 100 UNITS/ML 3 ML PEN SC SCH ×2 (08:12→21:00)
--- NOTE | 2019-11-30 11:33 | Orthopedic Progress Note ---
Date of Service November 30, 2019 Assessment & Plan (1) Neurogenic claudication due to lumbar spinal stenosis: This time we will continue physical therapy monitor her CECE output advance her bowel regiment hopefully discharge home tomorrow. Present on Admission?: Yes Admission and Anticipated Discharge Date Admission Date: November 28, 2019 Subjective Patient's back pain is controlled leg symptoms improved. Physical Exam Physical Exam: On exam she is good strength testing is comfortable. Results & Data ([facility]) Vital Signs (Past 12 Hours) Vital Signs Temp Pulse Pulse Resp BP Pulse Ox 11/30/19 08:39 37.1 C 11/30/19 07:09 37.9 C H 110 H 20 136/83 92 11/30/19 03:24 37.3 C 114 H 20 133/86 96 11/29/19 23:37 37.3 C 75 75 18 124/70 96
[2019-11-30] MEDS: OXYCODONE HCL IR 5 MG TAB (IMMEDIATE RELEASE) PO PRN ×2 (12:03→20:52)
--- NOTE | 2019-11-30 12:51 | Hospitalist Progress Note ---
Date of Service November 30, 2019 Assessment & Plan (1) Neurogenic claudication due to lumbar spinal stenosis: S/P lumbar decompression / fusion. POD # 2. (2) Leukocytosis: WBC 17,130 ---> 14,450. No fever or signs / symptoms of infection. Leukocytosis probably secondary to perioperative steroids and/or physiologic stress. (3) CAD (coronary artery disease): No anginal symptoms. (4) HTN (hypertension): Continue losartan. (5) Acid reflux: Continue PPI. (6) DM type 2 (diabetes mellitus, type 2): DM type 2 managed with canagliflozin, metformin, and Basaglar at home. Preop Hgb A1c 7.2. Elevated blood sugars perioperatively due to physiologic stress + steroids. Holding metformin and canagliflozin during hospital stay. Lantus / NovoLog per protocol. FBS today = 167. (7) Hypothyroid: Continue levothyroxine. (8) DVT prophylaxis: Per Ortho protocol. (9) Encounter for consultation: Thank you for this consultation. We will follow the patient with you during their hospital stay. My cell # is [phone]. You can reach a member of the [facility] Medicine Team 23/03 via pager @ [phone]. Admission and Anticipated Discharge Date Admission Date: November 28, 2019 Subjective Recheck for medical management. Patient seen in their room around 1040. Having some postop pain. Passing flatus, but no stool yet. Otherwise, doing well. Review of Systems: Constitutional- no fever. Cardiac- no chest pain. Pulmonary- no cough or SOB. GI- no nausea, vomiting, diarrhea. - no urinary symptoms. Otherwise, as noted above. Physical Exam Constitutional: no acute distress Respiratory: no respiratory distress Auscultation: lungs clear to auscultation bilaterally Cardiovascular: Rate/Rhythm: regular rate and regular rhythm Vessels: no JVD Extremities: no calf tenderness and no edema Gastrointestinal (Abdomen): normal bowel sounds, soft, nontender, no hepatosplenomegaly Skin: no rashes, warm and dry Psychiatric: Orientation: alert and oriented x 3 Results & Data Results & Data ([facility]) Vital Signs (Past 12 Hours) Vital Signs Temp Pulse Pulse Resp BP Pulse Ox 11/30/19 08:39 37.1 C 11/30/19 07:09 37.9 C H 110 H 20 136/83 92 04/01/20 03:24 37.3 C 114 H 20 133/86 96 Laboratory Results 11/30/19 05:55 11/29/19 05:23 11/29/19 11/29/19 11/30/19 16:51 20:30 07:50 POC Glucose 122 H 181 H 167 H 11/30/19 11:54 POC Glucose 124 H
[2019-11-30] MEDS: DOCUSATE SODIUM/SENNA 50/8.6MG TAB PO SCH (20:53)
[2019-12-01] MEDS: CHECK SCOPOLAMINE PATCH PLACEMENT SCH (00:04)
[2019-12-01] MEDS: POLYETHYLENE (MIRALAX) 17 GM PACK PO SCH (00:05)
[2019-12-01] MEDS: LEVOTHYROXINE SODIUM 200 MCG TABLET PO SCH (06:12)
--- NOTE | 2019-12-01 08:14 | Discharge Summary ---
Date of Service November 30, 2019 Admission HPI Per Admitting Provider This is a 54-year-old female that presents with marked decline in status with worsening back bilateral leg pain and inability to ambulate. Subsequently she is here for urgent surgery. Principal Diagnosis Lumbar spinal stenosis with neurogenic claudication Discharge Data Allergies Allergy/AdvReac Type Severity Reaction Status Date / Time Penicillins Allergy Unknown Rash Verified 11/28/19 09:04 sulfamethoxazole Allergy Unknown Rash Verified 11/28/19 09:04 [From Bactrim] trimethoprim [From Bactrim] Allergy Unknown Rash Verified 11/28/19 09:04 diazepam [From Valium] AdvReac Unknown hyperactivi Verified 11/28/19 09:04 ty Consultations 11/28/19 14:07 Consult Case Management - Discharge Planning Routine Consult Hospitalist Routine Procedures Performed Operation Date: 11/28/19 10:25 Actual Procedures p L4-S1 Decompression and Fusion with Interbody L4-L5, L5-S1, Spinal Cord Monitoring(Not Applicable) - Alverto Carnes DO Ordered Studies 11/28/19 10:25 FL fluoroscopy <1hr Routine FL lumbar spine 2-3V Routine Hospital Course (1) Neurogenic claudication due to lumbar spinal stenosis: Patient underwent lumbar decompression fusion tolerated as well as taken to orthopedic for postoperative. Postop day 1 #1 she is up and ambulating leg pain and weakness improved. She progressed to postop day #2 on postop day #3 CECE drainage decreased appropriately. Pain well controlled. Strength improving. Subsequently discharged home. Discharge orders and instructions found in the chart for further review. Total Time Total Time Spent Total Time Spent (In Minutes): 20 minutes Discharge Plan Discharge Items Patient Disposition: Home - Self-Care Reason For Visit: LUMBAR SPINAL STENOSIS WO NEUROGENIC CLAUDICATION Discharge Diagnosis: Lumbar spinal stenosis with neurogenic claudication Activity: As commented below Non-emergency contact: Primary Care Provider Call non-emergency contact if: you have any medication questions Follow-up/Referrals: Maxine Estrada MD [Primary Care Provider] - Diet: Regular Addtl Attending Provider Instructions: ACTIVITY RECOMMENDATIONS: SELF CARE INSTRUCTIONS AFTER THORACIC/LUMBAR FUSIONS 1. You may walk to your tolerance. It is good exercise for your legs and back. Expect some back and intermittent leg aches and pains. 2. You may perform "counter-top" level activities (make a sandwich, celsa with a project, etc.). 3. No bending or lifting of more than 10 pounds or back twisting of any nature (roll like a log when turning in bed). 4. You may ride in a car for 20-30 minutes at a time. No driving until after your first visit with your doctor. 5. Frequent changes of position and restricting sitting to 30 minutes at a time will help limit the amount of back spasms and stiffness you may experience. 6. You may discontinue the use of ambulatory aids (cane, crutches, etc.) once your strength and confidence allow. 7. You may loan processing supervisor the shower and let water strike your incision when you arrive home at least once daily. Do not take a tub bath, sit in a hot tub or go into a swimming pool until after your first recheck in the office. SPECIAL CARE INSTRUCTIONS: VERY IMPORTANT TO READ AND REVIEW A. Your surgical incision has been closed with a cosmetic suture under the skin that will dissolve in about 6 weeks. In 14 days, you can use a pair of clean scissors and cut the suture that is left outside of the skin at the ends of your incision. 1. The small skin tapes can be removed 7 days after surgery if they have not fallen off by that point. 2. You may keep the wound open to air as much as possible to promote healing after post-op day number 5 unless told otherwise by your doctor. 3. If you think the wound looks like it is becoming infected (redness or worsening drainage) and/or you are experiencing fever, chill or worsening back pain and muscle spasms, contact the office so that we may evaluate you as soon as possible. B. Complications are uncommon, but please contact us if you have any signs or symptoms of: 1. wound infection (fever higher than 102.5 degrees F, redness, separation of wound, drainage, or increasing pain from the incision) 2. blood clots in legs (pain, swelling, redness and warmth in legs) 3. urinary tract infection (fever higher than 102.5 degrees F, burning upon urination or increased frequency of urination) 4. nerve problems (inability to walk on your toes or heels, numbness, loss of bowel or bladder control) 5. any other symptoms that concern you C. Please call the office at if you have any concerns or questions about your operation or recovery. D. No smoking! Smoking drastically decreases the chance of a solid fusion. E. Do not take any anti-inflammatory medications (Indocin, Advil, Motrin, Aspirin, Naprosyn, etc.) as these may inhibit the chance of a solid fusion. Tylenol is okay to take for pain. MANAGING PAIN AFTER SPINAL SURGERY 1. Narcotic medication is intended for short-term use and will be provided for surgical pain. Surgical pain usually lasts for a period of 4-6 weeks. Narcotic medication includes Percocet, Vicodin, Darvocet, Tylenol #3 or Lortab. 2. Longer-term pain is more appropriately treated with non-narcotic medication such as Tylenol ES. 3. Muscle spasm is not appropriately treated with narcotics. Muscle relaxers such as Soma, Flexeril or Skelaxin can be used along with Tylenol ES. 4. Remember that we all live with some "aches and pains". This is not unusual or uncommon after an injury or as we get older. a. Back pain is expected and may include muscle spasms for 4 to 6 weeks after surgery. The pain should gradually improve. If the pain worsens for no apparent reason, please contact the office. b. Intermittent leg pain may also be experienced and should not be concerned about unless it worsens for no apparent reason. If so, please contact the office. 5. We will provide appropriate medication within the normal guidelines of their prescribed use. We will also be very cautious and aware of potential abuse and extended duration of patients' medication needs. a. Pain medications are for your comfort and to assist with sleep and rest so that the tissue can heal. They are not provided in order to return to normal activity and should not be used through the day. To do so or worsening pain at night can result from ongoing tissue damage and development of tolerance to the prescribed medicine. 6. Please allow 2-3 days to process refills. Prescriptions will not be mailed but must be picked up at the office. FOLLOW UP VISIT: Keep your scheduled follow-up appointment. Any questions, please call the office at . Pending Studies at Discharge: No Stand-Alone Forms: My [employer], Smoking Cessation Medications and DC Order Prescriptions: New tramadol 50 mg tablet 50 mg PO Q6H PRN (Reason: pain, moderate) Qty: 20 RF: 0 oxycodone 5 mg tablet 5 mg PO Q6H PRN (Reason: pain, severe) Qty: 20 RF: 0 Continued citalopram [Celexa] 40 mg Tablet 40 mg PO QAM RF: 0 omeprazole 40 mg Capsule,Delayed Release(Dr/Ec) 40 mg PO QAM RF: 0 metformin 1,000 mg Tablet 1,000 mg PO BID RF: 0 losartan [Cozaar] 25 mg Tablet 25 mg PO QAM RF: 0 gabapentin 300 mg Capsule 300 mg PO TID RF: 0 Basaglar KwikPen U-100 Insulin 100 unit/mL (3 mL) Insulin Pen 40 unit SUBCUT BID RF: 0 Invokana 300 mg Tablet 300 mg PO QAM RF: 0 levothyroxine [Synthroid] 200 mcg Tablet 200 mcg PO QAM RF: 0 Discontinued naproxen 500 mg Tablet 500 mg PO BID RF: 0 Discharge Orders: Discharge Order (Routine); Ordered 12/01/19 Ordered By: Alverto Carnes Admission Data Admit Date/Time: 11/28/19 12:58 Attending Provider: Alverto Carnes Admit Provider: Alverto Carnes Primary Care Provider: Maxine Estrada Other Providers: Enedelia Suh
[2019-12-01] MEDS: PANTOprazole 40 MG TAB PO SCH (08:30)
[2019-12-01] MEDS: LOSARTAN POTASSIUM 25 MG TAB PO SCH (08:30)
[2019-12-01] MEDS: CITALOPRAM 40 MG TAB PO SCH (08:30)
[2019-12-01] MEDS: GABAPENTIN 300 MG CAP PO SCH (08:30)
[2019-12-01] MEDS: INSULIN GLARGINE SOLOSTAR 100 UNITS/ML 3 ML PEN SC SCH (08:31)
[2019-12-01] MEDS: INSULIN ASPART 100 UNITS/ML 3 ML PEN SC SCH (08:31)
[2019-12-01] MEDS: OXYCODONE HCL IR 5 MG TAB (IMMEDIATE RELEASE) PO PRN (08:57)
[2019-12-01] MEDS ORDERED: INSULIN GLARGINE SOLOSTAR 100 UNITS/ML 3 ML PEN SC SCH (09:00)
--- NOTE | 2019-12-01 11:47 | Hospitalist Progress Note ---
Date of Service December 01, 2019 Assessment & Plan (1) Neurogenic claudication due to lumbar spinal stenosis: S/P lumbar decompression / fusion. POD # 3. (2) Leukocytosis: WBC 17,130 ---> 14,450. No fever or signs / symptoms of infection. Leukocytosis probably secondary to perioperative steroids and/or physiologic stress. (3) CAD (coronary artery disease): No anginal symptoms. (4) HTN (hypertension): Continue losartan. (5) Acid reflux: Continue PPI. (6) DM type 2 (diabetes mellitus, type 2): DM type 2 managed with canagliflozin, metformin, and Basaglar at home. Preop Hgb A1c 7.2. Elevated blood sugars perioperatively due to physiologic stress + steroids. Holding metformin and canagliflozin during hospital stay. Lantus / NovoLog per Discharge on usual regimen. (7) Hypothyroid: Continue levothyroxine. (8) DVT prophylaxis: Per Ortho protocol. (9) Encounter for consultation: Thank you for this consultation. We will follow the patient with you during their hospital stay. My cell # is [phone]. You can reach a member of the [facility] Medicine Team 23/03 via pager @ [phone]. Admission and Anticipated Discharge Date Admission Date: November 28, 2019 Subjective Recheck for medical management. Patient seen in their room around 1100. Less postop pain. Passing flatus + stool. Otherwise, doing well. Voiding without difficulty. Going home today. Physical Exam Constitutional: no acute distress Respiratory: no respiratory distress Auscultation: lungs clear to auscultation bilaterally Cardiovascular: Rate/Rhythm: regular rate and regular rhythm Vessels: no JVD Extremities: no calf tenderness and no edema Gastrointestinal (Abdomen): normal bowel sounds, soft, nontender, no hepatosplenomegaly Skin: no rashes, warm and dry Psychiatric: Orientation: alert and oriented x 3 Results & Data Results & Data ([facility]) Vital Signs (Past 12 Hours) Vital Signs Temp Pulse Pulse Resp BP BP Pulse Ox 12/01/19 09:13 36.8 C 93 H 18 122/78 125/78 93 12/01/19 07:08 36.8 C 100 H 18 122/78 93 Laboratory Results 11/30/19 11/30/19 11/30/19 11:54 16:46 20:59 POC Glucose 124 H 134 H 170 H 12/01/19 07:57 POC Glucose 194 H
== END 2019-12-01 11:21 | disposition home or self-care (01) | DRG 454 ==
LOC: ASU 08:29 → 3E 12:58